=== PATIENT | female | born 1980 | race Caucasian/White ===

== ENCOUNTER 2023-01-27 10:08 | Outpatient (CLI) | payer BC | END 2023-01-27 10:09 | disposition home or self-care (01) | LOC: RAD 10:08 | PROVIDERS: ATTEND Family Medicine | DX: M54.6 Pain in thoracic spine (principal); R05.9 Cough, unspecified | CPT/HCPCS: 71046; 72070 ==

== ENCOUNTER 2023-03-24 14:11 | Outpatient (CLI) | payer BC | END 2023-03-24 14:12 | disposition home or self-care (01) | LOC: SCSRAD 14:11 | PROVIDERS: ATTEND Internal Medicine Rheumatology | DX: M45.7 Ankylosing spondylitis of lumbosacral region (principal); M54.89 Other dorsalgia; M46.1 Sacroiliitis, not elsewhere classified; M47.812 Spondylosis without myelopathy or radiculopathy, cervical region; M50.321 Other cervical disc degeneration at C4-C5 level | CPT/HCPCS: 72050; 72072; 72170 ==